=== PATIENT | female | born 1990 | race Caucasian/White ===

== ENCOUNTER 2016-09-26 13:24 | Emergency (ER) | payer OTHER ==
[2016-09-26 13:28] VITALS: BP 115/78; PULSE 87; TEMP 98.6; BMI 19.5
--- NOTE | 2016-09-26 15:05 | PDOC ---
History of Present Illness - General Chief Complaint: Laceration Stated Complaint: INJURY (FOOT) Time Seen by Provider: 09/26/16 13:56 History Source: Patient Exam Limitations: No Limitations - History of Present Illness Initial Comments: 09/26/16 15:02 My chief complaint: Laceration to left foot hit it on a metal bed frame History of present illness: Patient is a 25 year old female with no significant medical issues here today after she sustained a laceration to her left dorsal foot hitting it on the metal door frame when she was making the bed or to arrival here today. Patient reports that she is up-to-date with immunizations including tetanus. Patient does not have any numbness or pain in her left foot. Occurred: reports: just prior to arrival Severity: reports: mild Pain Location: reports: lower extremity (left foot ) Method of Injury: Yes: direct blow (to metal frame of bed) Modifying Factors: improves with: None Loss of Consciousness: no loss of consciousness Past History - Past Medical History Allergies/Adverse Reactions: Allergies Allergy/AdvReac Type Severity Reaction Status Date / Time No Known Allergies Allergy Verified 09/26/16 13:26 Home Medications: Ambulatory Orders NK [No Known Home Medication] 09/26/16 - Psycho/Social/Smoking Cessation Hx Anxiety: No Suicidal Ideation: No Smoking History: Never smoked Have you smoked in the past 12 months: No Hx Alcohol Use: No Drug/Substance Use Hx: No Substance Use Type: None Review of Systems - Review of Systems Able to Perform ROS?: Yes Constitutional: No: Symptoms Reported HEENTM: No: Symptoms Reported Respiratory: No: Symptoms reported Cardiac (ROS): No: Symptoms Reported ABD/GI: No: Symptoms Reported Musculoskeletal: No: Symptoms Reported Integumentary: Yes: Other (laceration left dorsal foot) Neurological: No: Symptoms reported *Physical Exam - Vital Signs Last Vital Signs Temp Pulse Resp BP Pulse Ox 98.6 F 87 18 115/78 100 09/26/16 13:26 09/26/16 13:26 09/26/16 13:26 09/26/16 13:26 09/26/16 13:26 - Physical Exam General Appearance: Yes: Appropriately Dressed Vascular Pulses: Doralis-Pedis (L): 4+ Extremity: positive: Normal Capillary Refill, Normal Inspection (except for laceration), Normal Range of Motion. negative: Tender Integumentary: positive: Other (laceration left dorsal foot vertical approx 4 cm x 0.25 cm ) Neurologic: positive: Normal Response, Respond to painful stimul (left dorsal foot ), Other (rt. foot and toes full range of motion ). negative: Numbness, Sensory Deficit (left foot ) Deep Tendon Reflexes: Ankle (L): 4+ Procedures - Consent Consent obtained: From Patient - Laceration/Wound Repair Left Dorsal Foot Wound Length: 2.6 to 5.0 cm Wound Explored: clean Wound's Depth, Shape: superficial, linear Irrigated w/ Saline: Yes Betadine Prep: Yes Anesthesia: 1% Lidocaine Amount of Anesthetic (ccs): 3 Wound Repaired With: Sutures Suture Size/Type: 5:0 Number of Sutures: 7 (interrupted) Sterile Dressing Applied: Yes Medical Decision Making - Medical Decision Making 09/26/16 15:03 Patient is a 25 year old female with no significant medical issues here today after she sustained a laceration to her left dorsal foot hitting it on the metal door frame when she was making the bed or to arrival here today. Patient reports that she is up-to-date with immunizations including tetanus. Patient does not have any numbness or pain in her left foot. *DC/Admit/Observation/Transfer Diagnosis at time of Disposition: Laceration of foot Qualifiers: Encounter type: initial encounter Laterality: left Qualified Code(s): S91.312A - Laceration without foreign body, left foot, initial encounter - Discharge Dispostion Disposition: HOME Condition at time of disposition: Stable - Patient Instructions Additional Instructions: Keep wound dry today may wash tomorrow with antibacterial soap and water wet thoroughly and removed Steri-Strips gently then dry and apply bacitracin ointment small amount cover with bandage when out of the home Continue to cleanse wound on left foot with antibacterial soap and water twice a day and gently dry and apply tiny amount of bacitracin ointment and apply and did when out of the home let air out at night Return here in 10-14 days for suture removal or sooner if any redness around wound or discharge from wound Patient voiced understanding of discharge instructions and all questions were answered
== END 2016-09-26 15:03 | disposition home or self-care (01) ==
LOC: JERFT 13:24
PROC: 0HQNXZZ Repair Left Foot Skin, External Approach (ICD-10-PCS; principal; 2016-09-26)
DX: S91.312A Laceration without foreign body, left foot, initial encounter (principal); W51.XXXA Accidental striking against or bumped into by another person, initial encounter; Y93.89 Activity, other specified; Y92.9 Unspecified place or not applicable
CPT/HCPCS: 99282-25

== ENCOUNTER 2016-10-12 19:37 | Emergency (ER) | payer OTHER ==
[2016-10-12 20:07] VITALS: BP 115/80; PULSE 68; TEMP 98.8; BMI 19.5
--- NOTE | 2016-10-12 20:25 | PDOC ---
Suture Removal/Wound Check HPI - History of Present Illness Chief Complaint: Suture/Staple Removal(Here) Stated Complaint: SUTURE/STAPLE REMOVAL Time Seen by Provider: 10/12/16 20:10 History Source: Yes: Patient Exam Limitations: Yes: No Limitations Treated at: [facility] ED Date of Last ED visit: 09/26/16 - Previous ED Treatment Type of procedure performed on last visit: Yes: Laceration Repair Past History - Past Medical History Allergies/Adverse Reactions: Allergies No Known Allergies Allergy (Verified 10/12/16 20:05) Home Medications: Ambulatory Orders NK [No Known Home Medication] 09/26/16 - Immunization History Tetanus Status: More than 5 years - Social History Smoking Status: Never smoked Suture Removal/Wound Check PE - Physical Exam Laceration/Wound Check Symptoms: denies: Pain, Fever, Chills, Redness Current Severity Level: None Location of Laceration/Wound: left: Foot (well healing lac to dorsum of L foot, sutures intact) *Review of Systems - Review of Systems Constitutional: No: Chills, Fever Medical Decision Making - Medical Decision Making 10/12/16 20:24 25-year-old female, no significant history, here for suture removal. Status post suture repair to dorsum of left foot over 2 weeks ago. Denies pain, redness, fever or chills. Patient well-appearing and stable with when well- healing laceration. 7 sutures removed without any complications. Stable for discharge at this time *DC/Admit/Observation/Transfer Diagnosis at time of Disposition: Visit for suture removal - Discharge Dispostion Disposition: HOME Condition at time of disposition: Good - Patient Instructions Printed Discharge Instructions: DI for Suture Removal
== END 2016-10-12 20:31 | disposition home or self-care (01) ==
LOC: JERFT 19:37
DX: Z48.02 Encounter for removal of sutures (principal)
CPT/HCPCS: 99281-25

== ENCOUNTER 2016-10-18 16:34 | Emergency (ER) | payer OTHER ==
[2016-10-18 16:43] VITALS: BP 107/76; PULSE 102; TEMP 99.1; BMI 19.5
--- NOTE | 2016-10-18 16:59 | PDOC ---
History of Present Illness - General Chief Complaint: Injury Stated Complaint: INJURY TO RIGHT LEG Time Seen by Provider: 10/18/16 16:58 History Source: Patient Exam Limitations: No Limitations - History of Present Illness Initial Comments: CHIEF COMPLAINT: 25 y/o afebrile female with no significant PMH c/o right knee pain s/p fall yesterday. HISTORY OF PRESENT ILLNESS: The patient states she slipped and fell down about 5 steps last night. She was able to get up and walk to her bed and go to sleep. She states she woke up this morning and couldn't walk because it hurts too much. She denies f/c, n/v/d, CP, SOB, head trauma, LOC, numbness/tingling in LEs. Vital signs on arrival are notable for pulse of 102. REVIEW OF SYSTEMS: GENERAL/CONSTITUTIONAL: No fever/chills. No weakness. No weight change. HEAD, EYES, EARS, NOSE AND THROAT: No change in vision. No ear pain or discharge. No sore throat. MUSCULOSKELETAL: +right knee pain and swelling. No neck or back pain. SKIN: No rash or easy bruising. NEUROLOGIC: No headache, vertigo, loss of consciousness, or loss of sensation. PHYSICAL EXAM: VITAL_SIGNS: within normal limits GENERAL_APPEARANCE: alert, cooperative, no obvious discomfort. The patient is wheeled in on a wheelchair. MENTAL_STATUS: speech clear, oriented X 3, responds appropriately to questions. NEURO: motor intact and sensory intact in injured extremity. EXTREMITIES: good pulse in injured extremity. Swelling to superior right knee with faint ecchymotic area over right patella. The patient refuses to let me examine her knee secondary to pain. No erythema or warmth to affected joint. No streaking. SKIN: warm, dry, good color. Past History - Past Medical History Allergies/Adverse Reactions: Allergies Allergy/AdvReac Type Severity Reaction Status Date / Time No Known Allergies Allergy Verified 10/18/16 16:43 Home Medications: Ambulatory Orders NK [No Known Home Medication] 09/26/16 Other medical history: NONE - Psycho/Social/Smoking Cessation Hx Anxiety: No Suicidal Ideation: No Smoking History: Never smoked Have you smoked in the past 12 months: No Hx Alcohol Use: No Drug/Substance Use Hx: No Substance Use Type: None *Physical Exam - Vital Signs Last Vital Signs Temp Pulse Resp BP Pulse Ox 99.1 F 102 H 18 107/76 99 10/18/16 16:40 10/18/16 16:40 10/18/16 16:40 10/18/16 16:40 10/18/16 16:40 Medical Decision Making - Medical Decision Making A/P: 25 y/o female with right knee pain s/p fall last night. Plan is as follows: 1. hcg hcg - negative 2. IM Toradol 3. Right knee xray Xray right knee IMPRESSION: Large suprapatellar joint effusion without fracture or dislocation. The patient was given her results. Her HR has come down and she is no longer tachycardic. She was given a knee immobilizer and crutches. Suggested she take 400mg of Motrin or Ibuprofen every 6 hours for pain and swelling, follow RICE instructions and call Dr. Borrego for follow up appointment tomorrow. Pt instructed to return to the ER with any worsening or concerning symptoms. The patient verbalizes understanding of all instructions, has no further questions and is awaiting discharge. *DC/Admit/Observation/Transfer Diagnosis at time of Disposition: Knee pain, right anterior - Discharge Dispostion Disposition: HOME Condition at time of disposition: Improved - Referrals Referrals: Morgan Borrego MD [Staff Physician] - Call tomorrow - Patient Instructions Printed Discharge Instructions: DI for Knee Pain, DI for Knee Effusion, How To Perform RICE (Rest, Ice, Compress, Elevate), How to Use Crutches Additional Instructions: Discharge Instructions: -Take 400mg of Ibuprofen or Motrin every 6 hours with food for pain and swelling -Use knee immobilizer and crutches until you see Dr. Borrego -Follow RICE instructions -Call Dr. Borrego tomorrow to schedule follow up appointment - Post Discharge Activity Work/School Note: Back to Work
[2016-10-18] MEDS ORDERED: KETOROLAC TROMETHAMINE 60 MG/2 ML VIAL IM ONE (17:37)
[2016-10-18] MEDS ORDERED: KETOROLAC TROMETHAMINE 60 MG/2 ML VIAL ONE (17:49)
== END 2016-10-18 19:30 | disposition home or self-care (01) ==
LOC: JERFT 16:34
PROC: 2W3LXYZ Immobilization of Right Lower Extremity using Other Device (ICD-10-PCS; principal; 2016-10-18)
DX: M25.461 Effusion, right knee (principal); W10.8XXA Fall (on) (from) other stairs and steps, initial encounter; Y93.89 Activity, other specified; Y92.010 Kitchen of single-family (private) house as the place of occurrence of the external cause; Y99.8 Other external cause status
CPT/HCPCS: 29530; 73560-TC-RT; 84703; 99281-25

== ENCOUNTER 2021-10-19 17:55 | Observation (INO) | payer OTHER ==
[2021-10-19 18:03] VITALS: BMI 21.9
[2021-10-19] MEDS ORDERED: SODIUM CHLORIDE 0.9% 500 ML INFUS.BAG IV ONE (18:44)
[2021-10-19] MEDS ORDERED: METOCLOPRAMIDE HCL INJECTION 10 MG/2 ML VIAL IVPUSH ONE (18:44)
[2021-10-19] MEDS ORDERED: FAMOTIDINE 20 MG/50 ML IVPB 20 MG/50 ML MG IVPB ONE ×2 (18:44→18:50)
[2021-10-19] MEDS ORDERED: METOCLOPRAMIDE HCL INJECTION 10 MG/2 ML VIAL ONE (18:50)
[2021-10-19 19:27] LABS: BASO % 0.4 % (0-2.0); EOS % 1.5 % (0-4.5); HEMATOCRIT 40.7 % (32.4-45.2); HEMOGLOBIN 14.5 GM/dL (10.7-15.3); LYMPH % 23.8 % (8-40); MCH 31.9 pg (25.7-33.7); MCHC 35.7 g/dl (32.0-36.0); MEAN CELL VOLUME 89.2 fl (80-96); MEAN PLT VOLUME 8.4 fl (7.5-11.1); MONO % 8.8 % (3.8-10.2); NEUT % 65.5 % (42.8-82.8); PLATELET COUNT 262 10^3/uL (134-434); RBC 4.56 M/mm3 (3.60-5.2); RDW 11.5 % (11.6-15.6); WHITE BLOOD COUNT 6.1 K/mm3 (4.0-10.0)
[2021-10-19 19:57] LABS: CHLORIDE 99 mmol/L (98-107); SODIUM 136 mmol/L (136-145)
[2021-10-19 20:00] LABS: LIPASE 668 U/L (73-393)
[2021-10-19 20:01] LABS: CALCIUM 9.4 mg/dL (8.5-10.1)
[2021-10-19 20:02] LABS: ANION GAP 11 MMOL/L (8-16); CO2 26 mmol/L (21-32); GLUCOSE,RANDOM 80 mg/dL (74-106)
[2021-10-19 20:03] LABS: ALBUMIN 3.9 g/dl (3.4-5.0)
[2021-10-19] MEDS ORDERED: POTASSIUM CHLORIDE ORAL LIQUID 20 MEQ/15 ML PO ONE (20:04)
[2021-10-19 20:05] LABS: CREATININE 0.8 mg/dL (0.55-1.3); SGOT/AST 97 U/L (15-37); SGPT/ALT 144 U/L (13-61)
[2021-10-19 20:06] LABS: TOT PROT 7.8 g/dl (6.4-8.2)
[2021-10-19 20:08] LABS: ALK PHOS 48 U/L (45-117)
[2021-10-19] MEDS ORDERED: POTASSIUM CHLORIDE ORAL LIQUID 20 MEQ/15 ML ONE (20:08)
[2021-10-19 20:18] LABS: BLOOD UREA NITROGEN 14.8 mg/dL (7-18)
[2021-10-19 20:26] LABS: BILIRUBIN,TOTAL 2.1 mg/dL (0.2-1)
[2021-10-19 21:32] LABS: EPI CELLS 20 /uL (0-25.1); HYALINE CASTS 30 /uL (0-3.1); PH,URINE 5.5 (5.0-8.0); URINE APPEARANCE CLOUDY; URINE BILIRUBIN 2+ (NEGATIVE); URINE COLOR DK YELLOW; URINE GLUCOSE (UA) NEGATIVE (NEGATIVE); URINE KETONE 4+ (NEGATIVE); URINE LEUK ESTERASE 2+ (NEGATIVE); URINE NITRITE POSITIVE (NEGATIVE); URINE PROTEIN 1+ (NEGATIVE); URINE WBC 684 /uL (0-25.8)
[2021-10-19 21:58] LABS: URINE RBC 21.8 /uL (0-23.9)
[2021-10-19 21:59] LABS: URINE BACTERIA 66.8 /uL (0-1359); YEAST NONE SEEN (NEGATIVE)
[2021-10-19] MEDS ORDERED: POTASSIUM CHLORIDE 10 MEQ in DEXTROSE 5%-NORMAL SALINE 1,000 ML IVPB SCH (22:00)
[2021-10-19] MEDS ORDERED: ONDANSETRON 4 MG/2 ML VIAL IVPUSH ONE (22:40)
[2021-10-19] MEDS ORDERED: ONDANSETRON 4 MG/2 ML VIAL ONE (23:02)
[2021-10-19] MEDS ORDERED: D5-NS + 20 MEQ KCL - 20 MEQ/1,000 ML INFUS.BAG IV SCH (23:15)
[2021-10-20] MEDS ORDERED: DEXTROSE 5%-NORMAL SALINE 1,000 ML IV SCH (01:30)
[2021-10-20] MEDS ORDERED: METOCLOPRAMIDE HCL INJECTION 10 MG/2 ML VIAL IVPUSH PRN (01:44)
[2021-10-20] MEDS ORDERED: CEFTRIAXONE 1 GM in DEXTROSE 5%-WATER - 50 ML IVPB ONE (02:30)
[2021-10-20] MEDS ORDERED: CEFTRIAXONE 1 GM/50 ML BAG ONE ×2 (02:31→09:27)
[2021-10-20] MEDS ORDERED: HEPARIN NA (PORCINE) 5,000 UNITS/ML 1ML VIAL SQ SCH (06:00)
[2021-10-20 08:28] LABS: CHLORIDE 109 mmol/L (98-107); SODIUM 137 mmol/L (136-145)
[2021-10-20 08:43] LABS: SGPT/ALT 114 U/L (13-61)
[2021-10-20 08:44] LABS: ALK PHOS 35 U/L (45-117); ANION GAP 7 MMOL/L (8-16); BILIRUBIN,TOTAL 1.8 mg/dL (0.2-1); BLOOD UREA NITROGEN 9.2 mg/dL (7-18); CO2 22 mmol/L (21-32); GLUCOSE,RANDOM 99 mg/dL (74-106); LDH 133 U/L (84-246); MAGNESIUM 1.9 mg/dL (1.8-2.4)
[2021-10-20 08:46] LABS: CREATININE 0.5 mg/dL (0.55-1.3)
[2021-10-20 08:47] LABS: SGOT/AST 75 U/L (15-37)
[2021-10-20 09:07] LABS: HEMATOCRIT 30.5 % (32.4-45.2); HEMOGLOBIN 10.9 GM/dL (10.7-15.3); MCHC 35.9 g/dl (32.0-36.0); MEAN CELL VOLUME 89.2 fl (80-96); MEAN PLT VOLUME 8.4 fl (7.5-11.1); PLATELET COUNT 177 10^3/uL (134-434); RBC 3.42 M/mm3 (3.60-5.2); RDW 11.3 % (11.6-15.6); WHITE BLOOD COUNT 4.3 K/mm3 (4.0-10.0)
[2021-10-20 09:13] LABS: BASO % 0.3 % (0-2.0); EOS % 2.4 % (0-4.5); LYMPH % 26.2 % (8-40); MONO % 9.8 % (3.8-10.2); NEUT % 61.3 % (42.8-82.8)
[2021-10-20] MEDS ORDERED: ENOXAPARIN NA (PORCINE) 40 MG/0.4 ML DISP.SYRIN SQ ONE (09:27)
[2021-10-20] MEDS ORDERED: CEFTRIAXONE 1 GM in DEXTROSE 5%-WATER - 50 ML IVPB SCH (10:00)
[2021-10-20] MEDS ORDERED: ENOXAPARIN NA (PORCINE) 40 MG/0.4 ML DISP.SYRIN SQ SCH ×2 (10:00)
[2021-10-20 10:01] LABS: PHENCYCLIDINE,URINE NEGATIVE (NEGATIVE)
[2021-10-20 10:02] LABS: METHADONE, UR NEGATIVE (NEGATIVE); OPIATES, URI NEGATIVE (NEGATIVE); URINE BARBITURATES NEGATIVE (NEGATIVE)
[2021-10-20 10:10] LABS: COCAINE, UR NEGATIVE (NEGATIVE); URINE AMPHETAMINES NEGATIVE (NEGATIVE); URINE BENZODIAZEPINES NEGATIVE (NEGATIVE)
[2021-10-20 10:55] LABS: ALBUMIN 2.8 g/dl (3.4-5.0); CALCIUM 7.8 mg/dL (8.5-10.1); TOT PROT 5.5 g/dl (6.4-8.2)
[2021-10-20 12:05] VITALS: BP 99/55; PULSE 78; TEMP 98
== END 2021-10-20 13:44 | disposition home or self-care (01) ==
LOC: JER 17:55 → JERBED 10-20 00:19
PROVIDERS: ADMIT Internal Medicine; ATTEND Nurse Practitioner Acute Care
PROC: 3E03329 Introduction of Other Anti-infective into Peripheral Vein, Percutaneous Approach (ICD-10-PCS; principal; 2021-10-20)
PROC: 3E033GC Introduction of Other Therapeutic Substance into Peripheral Vein, Percutaneous Approach (ICD-10-PCS; 2021-10-20)
DX: O21.0 Mild hyperemesis gravidarum (principal); U07.1 COVID-19; Z3A.01 Less than 8 weeks gestation of pregnancy; O99.891 Other specified diseases and conditions complicating pregnancy; R63.0 Anorexia; R74.8 Abnormal levels of other serum enzymes
CPT/HCPCS: 0241U-QW; 36415; 76705-TC; 76801-TC; 80053; 80307; 81003; 82728; 83615; 83690; 83735; 84436; 84443; 84480; 84702; 85025; 86140; 87086; 93005; 93010; 96361; 96365; 96366; 96367; 99285-25; G0378

== ENCOUNTER 2021-10-22 04:37 | Day surgery (SDC) | payer OTHER ==
[2021-10-21 16:14] VITALS: BMI 22.8
[~2021-10-22 04:37] MED LIST: ceFAZolin SODIUM 1 GM VIAL IVPB ONE
[2021-10-22] MEDS ORDERED: KETOROLAC TROMETHAMINE 30 MG/1 ML VIAL ONE (14:23)
[2021-10-22] MEDS ORDERED: PROPOFOL 20 ML ONE ×2 (14:23)
[2021-10-22] MEDS ORDERED: MIDAZOLAM HCL 2 MG/2 ML SINGLE DOSE VIAL ONE (14:23)
[2021-10-22] MEDS ORDERED: ceFAZolin SODIUM 1 GM VIAL IVPB ONE (14:50)
[2021-10-22] MEDS ORDERED: ONDANSETRON 4 MG/2 ML VIAL IVPUSH PRN (15:20)
[2021-10-22] MEDS ORDERED: oxyCODONE HCL 5 MG TABLET PO PRN (15:20)
[2021-10-22] MEDS ORDERED: LACTATED RINGERS SOLUTION 1,000 ML IV SCH (15:30)
[2021-10-22] MEDS ORDERED: IBUPROFEN 400 MG TABLET (FP) PO PRN (16:05)
[2021-10-22] MEDS ORDERED: ACETAMINOPHEN 325 MG TABLET (FP) PO PRN (16:05)
[2021-10-22 18:10] VITALS: BP 103/55; PULSE 66; TEMP 98.8
== END 2021-10-22 18:11 | disposition home or self-care (01) ==
LOC: JASUSAT 04:37
PROVIDERS: ATTEND Specialist
PROC: 10A07Z6 Abortion of Products of Conception, Vacuum, Via Natural or Artificial Opening (ICD-10-PCS; principal; 2021-10-22 14:00)
DX: O04.89 (Induced) termination of pregnancy with other complications (principal)
CPT/HCPCS: 88305-TC; 94760

== ENCOUNTER 2023-06-14 11:06 | Emergency (ER) | payer OTHER ==
[2023-06-14 11:41] VITALS: BP 101/68; PULSE 102; RESP 18; TEMP 97.3; BMI 21.9
[2023-06-14] MEDS ORDERED: METOCLOPRAMIDE HCL INJECTION 10 MG/2 ML VIAL ONE (12:48)
[2023-06-14] MEDS ORDERED: ACETAMINOPHEN INJECTION 100 ML IVPB ONE (12:48)
[2023-06-14] MEDS: SODIUM CHLORIDE 0.9% 500 ML INFUS.BAG IV ONE (12:57)
[2023-06-14] MEDS: ACETAMINOPHEN 1000 MG/100 ML BAG IVPB ONE (12:57)
[2023-06-14] MEDS: METOCLOPRAMIDE HCL INJECTION 10 MG/2 ML VIAL IVPB ONE (12:57)
[2023-06-14 13:03] LABS: BASO % 0.4 % (0-2.0); EOS % 0.9 % (0-4.5); HEMATOCRIT 41.7 % (32.4-45.2); HEMOGLOBIN 14.6 GM/dL (10.7-15.3); LYMPH % 15.9 % (8-40); MCH 29.4 pg (25.7-33.7); MCHC 34.9 g/dl (32.0-36.0); MEAN CELL VOLUME 84.1 fl (80-96); MEAN PLT VOLUME 7.7 fl (7.5-11.1); MONO % 10.1 % (3.8-10.2); NEUT % 72.7 % (42.8-82.8); PLATELET COUNT 340 10^3/uL (134-434); RBC 4.96 M/mm3 (3.60-5.2); RDW 12.2 % (11.6-15.6); WHITE BLOOD COUNT 8.3 K/mm3 (4.0-10.0)
[2023-06-14 13:24] LABS: ALBUMIN 4.1 g/dl (3.4-5.0); CALCIUM 10.7 mg/dL (8.5-10.1)
[2023-06-14 13:25] LABS: BLOOD UREA NITROGEN 15.5 mg/dL (7-18); MAGNESIUM 2.1 mg/dL (1.8-2.4)
[2023-06-14 13:27] LABS: CREATININE 0.9 mg/dL (0.55-1.3)
[2023-06-14 13:37] LABS: BILIRUBIN,TOTAL 4.4 mg/dL (0.2-1)
[2023-06-14] MEDS ORDERED: POTASSIUM CHLORIDE ORAL LIQUID 20 MEQ/15 ML ONE (14:08)
[2023-06-14] MEDS: POTASSIUM CHLORIDE ORAL LIQUID 20 MEQ/15 ML PO ONE (14:16)
[2023-06-14] MEDS: PYRIDOXINE HCL (B-6) 50 MG TABLET (FP) PO ONE (14:16)
[2023-06-14] MEDS ORDERED: metroNIDAZOLE 250 MG TABLET ONE (15:38)
[2023-06-14] MEDS ORDERED: AZITHROMYCIN 500 MG TABLET ONE (15:39)
[2023-06-14 15:40] LABS: EPI CELLS >36 /uL (0-25.1); HYALINE CASTS 3 /uL (0-3.1); URINE APPEARANCE CLEAR; URINE BILIRUBIN 2+ (NEGATIVE); URINE COLOR DK YELLOW; URINE GLUCOSE (UA) NEGATIVE (NEGATIVE); URINE KETONE 3+ (NEGATIVE); URINE LEUK ESTERASE TRACE (NEGATIVE); URINE NITRITE POSITIVE (NEGATIVE); URINE PROTEIN TRACE (NEGATIVE); URINE UROBILINOGEN 4.0 E.U/dl mg/dL (0.2-1.0); URINE WBC 47 /uL (0-25.8)
[2023-06-14 15:41] LABS: URINE BACTERIA 304.5 /uL (0-1359); URINE RBC 32.4 /uL (0-23.9)
[2023-06-14] MEDS: metroNIDAZOLE 250 MG TABLET PO ONE (15:44)
[2023-06-14] MEDS: AZITHROMYCIN 500 MG TABLET PO ONE (15:45)
[2023-06-14] MEDS ORDERED: DEXTROSE 5%-WATER - 1,000 ML IV SCH (16:30)
== END 2023-06-14 19:14 | disposition left against medical advice (07) ==
LOC: JER 11:06
PROC: 3E033GC Introduction of Other Therapeutic Substance into Peripheral Vein, Percutaneous Approach (ICD-10-PCS; principal; 2023-06-14)
PROC: 3E033NZ Introduction of Analgesics, Hypnotics, Sedatives into Peripheral Vein, Percutaneous Approach (ICD-10-PCS; 2023-06-14)
DX: O21.9 Vomiting of pregnancy, unspecified (principal); O26.891 Other specified pregnancy related conditions, first trimester; R53.1 Weakness; Z3A.01 Less than 8 weeks gestation of pregnancy; O23.41 Unspecified infection of urinary tract in pregnancy, first trimester
CPT/HCPCS: 36415; 76705-TC; 80053; 81003; 82248; 83735; 84702; 85025; 87086; 99284-25; J0131

== ENCOUNTER 2024-01-18 06:10 | Inpatient (IN) | payer OTHER ==
[2024-01-18] MEDS ORDERED: PROMETHAZINE HCL 25 MG/1 ML VIAL IVPB PRN (19:51)
[2024-01-18] MEDS ORDERED: BUTORPHANOL TARTRATE 1 MG/ML VIAL IVPB PRN (19:51)
[2024-01-18] MEDS: LACTATED RINGERS SOLUTION 1,000 ML/1,000 ML INFUS.BAG IV SCH (20:05)
[2024-01-18 20:19] LABS: BASO % 0.7 % (0-2.0); EOS % 1.8 % (0-4.5); HEMATOCRIT 32.5 % (32.4-45.2); HEMOGLOBIN 10.7 GM/dL (10.7-15.3); LYMPH % 16.2 % (8-40); MCH 27.9 pg (25.7-33.7); MCHC 32.9 g/dl (32.0-36.0); MEAN CELL VOLUME 84.8 fl (80-96); MEAN PLT VOLUME 8.2 fl (7.5-11.1); MONO % 10.6 % (3.8-10.2); NEUT % 70.7 % (42.8-82.8); PLATELET COUNT 191 10^3/uL (134-434); RBC 3.84 M/mm3 (3.60-5.2); RDW 14.6 % (11.6-15.6); WHITE BLOOD COUNT 9.3 K/mm3 (4.0-10.0)
[2024-01-18 20:21] VITALS: BMI 28.3
[2024-01-18 20:26] LABS: INR 0.9 (0.83-1.09); PROTHROMBIN TIME (PATIENT) 10.2 SEC (9.7-13.0)
[2024-01-18] MEDS ORDERED: FENTANYL/BUPIVACAINE/NS/PF - PCEA - 50 ML DISP.SYRIN EP ONE (20:48)
[2024-01-18 20:53] LABS: POTASSIUM 3.8 mmol/L (3.5-5.1)
[2024-01-18 20:55] LABS: BLOOD UREA NITROGEN 8.5 mg/dL (7-18)
[2024-01-18 20:58] LABS: CREATININE 0.6 mg/dL (0.55-1.3)
[2024-01-18] MEDS: FENTANYL/BUPIVACAINE/NS/PF - PCEA - 50 ML DISP.SYRIN EP SCH (21:15)
[2024-01-18] MEDS ORDERED: NALOXONE HCL 0.4 MG/ML VIAL IVPUSH PRN (21:20)
[2024-01-18 21:32] LABS: HIV INTERPRETATION NEGATIVE (NEGATIVE)
[2024-01-18] MEDS ORDERED: FENTANYL/BUPIVACAINE/NS/PF - PCEA - 50 ML DISP.SYRIN EP SCH (21:56)
[2024-01-18] MEDS ORDERED: OXYTOCIN 20 UNITS in 0.9% NS 20 UNIT/1,000 ML INFUS.BAG IV ONE (23:13)
[2024-01-18] MEDS ORDERED: LIDOCAINE HCL 1% PRESERVATIVE FREE - 30ML VIAL ONE (23:14)
[2024-01-18] MEDS: OXYTOCIN 20 UNITS in 0.9% NS 20 UNIT/1,000 ML INFUS.BAG IV SCH (23:26)
[2024-01-18] MEDS ORDERED: BISACODYL 10 MG SUPP.RECT RC PRN (23:44)
[2024-01-18] MEDS ORDERED: ACETAMINOPHEN 325 MG TABLET (FP) PO PRN (23:44)
[2024-01-18] MEDS ORDERED: BENZOCAINE 20% 57 GM BOTTLE TP PRN (23:44)
[2024-01-18] MEDS ORDERED: WITCH HAZEL 50% (TUCKS) 40 PAD/JAR PAD TP PRN (23:44)
[2024-01-18] MEDS ORDERED: BENZOCAINE 28 GM HEMORRHOIDAL OINTMENT TP PRN (23:44)
[2024-01-18] MEDS ORDERED: oxyCODONE HCL 5 MG TABLET PO PRN (23:44)
[2024-01-18 23:59] LABS: CORD BASE EXCESS -3.5 mmol/L (0-2); CORD PCO2 36.4 mmHg (30-78); CORD pH 7.379 (7.14-7.44)
[2024-01-19] MEDS: METHYLERGONOVINE MALEATE 0.2 MG/1 ML AMP IM PRN (02:26)
[2024-01-19] MEDS: IBUPROFEN 600 MG TABLET (FP) PO PRN (02:26)
[2024-01-19 07:53] LABS: BASO % 0.2 % (0-2.0); EOS % 0.6 % (0-4.5); HEMATOCRIT 30.7 % (32.4-45.2); MCH 28.1 pg (25.7-33.7); MCHC 32.6 g/dl (32.0-36.0); MEAN CELL VOLUME 86.1 fl (80-96); MEAN PLT VOLUME 8.5 fl (7.5-11.1); MONO % 8.8 % (3.8-10.2); NEUT % 77.4 % (42.8-82.8); PLATELET COUNT 155 10^3/uL (134-434); RBC 3.56 M/mm3 (3.60-5.2); RDW 14.4 % (11.6-15.6); WHITE BLOOD COUNT 10.9 K/mm3 (4.0-10.0)
[2024-01-19] MEDS: FERROUS SO4 325 MG TABLET (FP) PO SCH (08:53)
[2024-01-19] MEDS: PRENATAL VITAMINS W/ FOLIC ACID TABLET (FP) PO SCH (10:20)
[2024-01-19 15:24] VITALS: RESP 18
[2024-01-19 17:35] VITALS: TEMP 98.6
[2024-01-19] MEDS ORDERED: SENNOSIDES/DOCUSATE COMBO (SENNA PLUS) TABLET (UD) PO PRN (22:00)
[2024-01-20 11:26] VITALS: BP 106/53; PULSE 71
== END 2024-01-20 13:50 | disposition home or self-care (01) | DRG 560 ==
LOC: JDEL 06:10 → JLDR 19:45 → J3W 01-19 01:42
PROVIDERS: ADMIT Obstetrics & Gynecology; ATTEND Obstetrics & Gynecology
PROC: 10E0XZZ Delivery of Products of Conception, External Approach (ICD-10-PCS; principal; 2024-01-18)
DX: O80 Encounter for full-term uncomplicated delivery (principal); Z3A.38 38 weeks gestation of pregnancy; Z37.0 Single live birth
CPT/HCPCS: 36415; 36600; 59409; 80048; 82803; 85025; 85610; 85730; 86850; 86900; 86901; 87086; 87389; 87491; 87591